=== PATIENT | male | born 1980 | race Caucasian/White ===

== ENCOUNTER 2023-06-03 10:46 | Outpatient (CLI) | payer OTHER, SELFPAY | END 2023-06-03 10:47 | disposition home or self-care (01) | PROVIDERS: PCP Family Medicine; Visit Provider Family Medicine | DX: Z00.00 Encounter for general adult medical examination without abnormal findings (principal); E78.5 Hyperlipidemia, unspecified; E78.00 Pure hypercholesterolemia, unspecified; Z13.0 Encounter for screening for diseases of the blood and blood-forming organs and certain disorders involving the immune mechanism; Z13.1 Encounter for screening for diabetes mellitus; R10.811 Right upper quadrant abdominal tenderness | CPT/HCPCS: 80048; 80061; 80076 ==